=== PATIENT | male | born 1965 | race Caucasian/White ===

== ENCOUNTER 2018-10-05 08:14 | Inpatient (IN) | payer MEDICARE, MEDICAID ==
[2018-10-05 08:33] LABS: % BASOPHILS 0.1 % (0.0-2.0); % EOSINOPHILS 3.4 % (0.0-5.0); % LYMPHOCYTES 30.9 % (20.0-50.0); % MONOCYTES 5.9 % (2.0-10.0); % NEUTROPHILS 59.7 % (40.0-80.0); EOSINOPHILE ABSOLUTE 0.2 Th/cmm (0.1-0.4); HEMATOCRIT 39.5 % (41.0-60); HEMOGLOBIN 13.3 gm/dL (12-16); LYMPHOCYTE ABSOLUTE 1.7 Th/cmm (1.5-3.0); MEAN CELL VOLUME 86.2 fl (80-99); MEAN CORPUSCULAR HGB CONC 33.7 pg (28.0-36.0); MONOCYTE ABSOLUTE 0.3 Th/cmm (0.3-1.0); NEUTROPHILE ABSOLUTE 3.3 Th/cmm (1.8-8.0); PLATELET COUNT 207 Th/cmm (150-400); RED BLOOD COUNT 4.58 Mil/cmm (4.30-5.70); RED CELL DISTRIBUTION WIDTH 14.4 % (11.5-20.0); WHITE BLOOD COUNT 5.5 Th/cmm (4.8-10.8)
[2018-10-05 08:49] LABS: ACETAMINOPHEN < 10.0 ug/mL (10.0-30.0); ALB/GLOB RATIO 1.3 (1.0-1.8); ALKALINE PHOSPHATASE 48 U/L (34-104); BILIRUBIN,TOTAL 0.5 mg/dL (0.3-1.0); BUN - UREA NITROGEN 15 mg/dL (7-25); CALCIUM SERUM 8.7 mg/dL (8.6-10.3); CARBON DIOXIDE 25.9 mEq/L (21.0-31.0); CHLORIDE 102 mEq/L (98-107); CHOLESTEROL 123 mg/dL (<200); CREATININE - SERUM 0.8 mg/dL (0.7-1.3); GFR AFRICAN-AMERICAN > 60.0 ml/min (>90); GFR NON AFRICAN-AMERICAN > 60.0 ml/min; GLUCOSE 151 mg/dL (70-105); HDL -HIGH DENSITY LIPOPROTEIN 35 mg/dL (23-92); POTASSIUM SERUM 3.9 mEq/L (3.5-5.1); SGOT 16 U/L (13-39); SGPT/ALT 15 U/L (7-52); SODIUM SERUM 135 mEq/L (136-145); TOTAL PROTEIN,SERUM 7.1 gm/dL (6.0-8.3); TRIGLYCERIDES 52 mg/dL (<150)
[2018-10-05 09:15] LABS: URINE SOURCE CLEAN C
[2018-10-05 09:58] LABS: URINE BILIRUBIN NEGATIVE (NEGATIVE); URINE BLOOD NEGATIVE (NEGATIVE); URINE GLUCOSE (UA) NEGATIVE (NEGATIVE); URINE KETONE NEGATIVE (NEGATIVE); URINE LEUKOCYTE ESTERASE NEGATIVE (NEGATIVE); URINE NITRATE NEGATIVE (NEGATIVE); URINE PH 6.5 (4.6 - 8.0); URINE PROTEIN NEGATIVE (NEGATIVE); URINE UROBILINOGEN 0.2 E.U./dL (0.2 - 1.0)
--- NOTE | 2018-10-05 09:59 | ED Physician Chart ---
ED Chief Complaint/HPI - Patient Information Date Seen:: 10/05/18 Time Seen:: 08:20 Chief Complaint:: Depression History of Present Illness:: onset x 3 days of depression and sadness; no report of trauma, H/As, SIs, neck pain, C/P, SOB, Abd. Pain, A/N/V/D/C, fever, chills, or urinary s/s Allergies:: Allergies Allergy/AdvReac Type Severity Reaction Status Date / Time No Known Allergies Allergy Verified 10/05/18 08:22 Vitals:: Vital Signs - 8 hr 10/05/18 08:23 Temp 98.4 F HR 63 RR 16 BP 126/76 O2 Sat % 99 Historian:: Patient, EMS Review:: Nurse's Note Reviewed, Old Chart Reviewed, EMS run form Reviewed ED Review of Systems - Review of Systems General/Constitutional: No fever, No chills, No weight loss, No weakness, No diaphoresis, No edema, No loss of appetite Skin: No skin lesions, No rash, No bruising Head: No headache, No light-headedness Eyes: No loss of vision, No pain, No diplopia ENT: No earache, No nasal drainage, No sore throat, No tinnitus Neck: No neck pain, No swelling, No thyromegaly, No stiffness, No mass noted Cardio Vascular: No chest pain, No palpitations, No PND, No orthopnea, No edema Pulmonary: No SOB, No cough, No sputum, No wheezing GI: No nausea, No vomiting, No diarrhea, No pain, No melena, No hematochezia, No constipation, No hematemesis G/U: No dysuria, No frequency, No hematuria, No nacturia Musculoskeletal: No bone or joint pain, No back pain, No muscle pain Endocrine: No polyuria, No polydipsia Psychiatric: Prior psych history, Depression, Anxiety, No suicidal ideation, No homicidal ideation, No auditory hallucination, No visual hallucination Hematopoietic: No bruising, No lymphadenopathy Allergic/Immuno: No urticaria, No angioedema Neurological: No syncope, No focal symptoms, No weakness, No paresthesia, No headache, No seizure, No dizziness, No confusion, No vertigo ED Past Medical History - Past Medical History Obtainable: Yes Past Medical History: HTN, Seizures Family History: HTN Social History: Non Smoker, No Alcohol, No Drug Use, Single, Care Facility Surgical History: None Psychiatricy History: Depression Medication: Reviewed Family Medical History - Family Member Mother History Unknown: Yes ED Physical Exam - Physical Examination General/Constitutional: Awake, Well-developed, well-nourished, Alert, No distress, GCS 15, Non-toxic appearing, Ambulatory Head: Atraumatic Eyes: Lids, conjuctiva normal, PERRL, EOMI Skin: Nl inspection, No rash, No skin lesions, No ecchymosis, Well hydrated, No lymphadenopathy ENMT: External ears, nose nl, TM canals nl, Nasal exam nl, Lips, teeth, gums nl , Oropharynx nl, Tonsils nl Neck: Nontender, Full ROM w/o pain, No JVD, No nuchal rigidity, No bruit, No mass, No stridor Respiratory: Nl effort/Exclusion, Clear to Auscultation, No Wheeze/Rhonchi/Rales Cardio Vascular: RRR, No murmur, gallop, rubs, NL S1 S2, Carotid/Femoral/Distal pulses equal bilaterally GI: No tenderness/rebounding/guarding, No organomegaly, No hernia, Normal BS's, Nondistended, No mass/bruits, No McBurney tenderness : No CVA tenderness Extremities: No tenderness or effusion, Full ROM, normal strength in all extremities, No edema, Normal digits & nails Neuro/Psych: Alert/oriented, DTR's symmetric, Normal sensory exam, Normal motor strength, Judgement/insight normal, Mood normal, Normal gait, No focal deficits Other Neuro/Psych comments:: + Psychomotor Retardation; no SIs; Mood/Affect: Tearful/Sad Misc: Normal back, No paraspinal tenderness ED Labs/Radiology/EKG Results - Lab Results Results: Laboratory Tests 10/05/18 10/05/18 10/05/18 08:27 08:27 08:27 WBC 5.5 RBC 4.58 Hgb 13.3 Hct 39.5 L MCV 86.2 MCH 29.0 MCHC Differential 33.7 RDW 14.4 Plt Count 207 MPV 7.4 Neutrophils % 59.7 Lymphocytes % 30.9 Monocytes % 5.9 Eosinophils % 3.4 Basophils % 0.1 Sodium 135 L Potassium 3.9 Chloride 102 Carbon Dioxide 25.9 Anion Gap 11.0 BUN 15 Creatinine 0.8 Est GFR ( Amer) > 60.0 Est GFR (Non-Af Amer) > 60.0 BUN/Creatinine Ratio 18.8 Glucose 151 H Calcium 8.7 Total Bilirubin 0.5 AST 16 ALT 15 Alkaline Phosphatase 48 Troponin I 0.01 Total Protein 7.1 Albumin 4.0 L Globulin 3.1 Albumin/Globulin Ratio 1.3 Triglycerides 52 Cholesterol 123 LDL Cholesterol Direct 86 HDL Cholesterol 35 Salicylates < 25.0 L Acetaminophen < 10.0 L Ethyl Alcohol < 10 Comments:: Reviewed - EKG Interpretations EKG Time:: 08:23 Rate & Rhythm: 63; NSR Comments:: non-specific st-t changes ED Septic Shock - . Is Septic Shock (SBP<90, OR Lactate>4 mmol\L) present?: No - <6hrs of presentation: Vital Signs: Vital Signs - 8 hr 10/05/18 08:23 Temp 98.4 F HR 63 RR 16 BP 126/76 O2 Sat % 99 ED Reassessment (Disposition) - Reassessment Reassessment Condition:: Improved - Diagnosis Diagnosis:: Depression; Medical Clearance; Affective Disorder - Aftercare/Follow up Instructions Aftercare/Follow-Up Instructions:: Counseled pt regarding lab results/diagnosis & need follow up, Counseled pt & family regarding lab results/diagnosis & need follow up - Patient Disposition Discharge/Transfer:: Acute Care w/in this hosp Admitted to:: [facility] Condition at Disposition:: Stable, Improved
[2018-10-05 10:01] LABS: URINE CLARITY CLEAR (CLEAR); URINE COLOR YELLOW; URINE MICROSCOPIC INDICATED? NO
[2018-10-05 10:11] LABS: AMPHETAMINE URINE NEGATIVE (NEGATIVE); BARBITURATES URINE NEGATIVE (NEGATIVE); BENZODIAZEPINES QUAL URINE NEGATIVE (NEGATIVE); CANNABINOID THC NEGATIVE (NEGATIVE); COCAINE METABOLITE QUAL URINE NEGATIVE (NEGATIVE); METHADONE URINE NEGATIVE (NEGATIVE); METHAMPHETAMINES QUAL URINE NEGATIVE (NEGATIVE); OPIATES (MORPHINE) QUAL. URINE NEGATIVE (NEGATIVE); PHENCYCLIDINE (PCP) URINE NEGATIVE (NEGATIVE); TRICYCLICS (TCA) QUAL. URINE NEGATIVE (NEGATIVE)
[2018-10-05 10:31] VITALS: BP 123/76
--- NOTE | 2018-10-05 13:29 | History & Physical ---
ADMIT DATE: 10/05/[address] Tadeo. IDENTIFYING INFORMATION: The patient is a 52-year-old male. CHIEF COMPLAINT: "I don't know." HISTORY OF PRESENT ILLNESS: The patient was referred from a nursing facility at [place] because of depression, sadness for the last 3 days. The patient was a poor historian. He does not know where he was, could not telling me the date, could not tell me his age. The only thing he knew that he was born in 1965. He denies that he will harm himself or anyone. He reports hearing voices sometimes, but not today. He reports he sleeps well, eats well. He was extremely a poor historian. He was very tangential. He was not sure where he is, why he is here, what is a day. He reports he was born in 1965. Could not tell me the date and how old he is now. PAST PSYCHIATRIC HISTORY: According to records, history of depression. The patient apparently has been already on medications for depression. He is on Paxil and Depakote. MEDICAL HISTORY: Hypertension and seizure disorder. ALLERGIES: The patient has no known drug allergy. SOCIAL HISTORY: Nonsmoker, no alcohol, no drugs. He came from a nursing facility. He was born in 1965. He said he is . Unable to tell me how long, but he said he has a child was born in 1990, but could not tell me the age. He reports he has 2, but he is not a reliable historian. He denies substance abuse. When I asked him how far he went in school, he is asking me odd questions like he was at night school or school in [place], school here in [place]. He was unable to answer questions. Unable to tell me what he did for living. Unable to tell if there is any family psychiatric disorder. MENTAL STATUS EXAMINATION: The patient was confused. He was alert. He seems like he has some cognitive disability. He was unable to tell me the date, where he is, why he is here. He denies that he will harm himself or anyone or feeling paranoid. He reported that he heard voices in the past, but he could not tell me if he is hearing voices today. He is a poor historian. 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 He could not tell me his age. He could not tell me the date. He does not tell me why he is here. His insight about his illness is poor, does not realize what problem he has. Judgment is poor. Unable to make decisions. 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 MEDICAL DIAGNOSES: Hypertension and seizure disorder, defer to the medical doctor. His assets, he is accepting treatment. Negative poor coping skills. INITIAL TREATMENT PLAN: The patient will be started back on medication. We will do group therapy, milieu therapy, and individual therapy. ESTIMATED LENGTH OF STAY: 3-7 days. DISCHARGE CRITERIA: Feeling better, decreasing depression. After discharge, outpatient treatment. [facility]# [id number]
[2018-10-06 07:06] LABS: A1C 5.5 % (4.8-5.6)
[2018-10-06] MEDS: Lactulose 10 Gm/15 mL 30mL UDC PO SCH (08:57)
--- NOTE | 2018-10-06 17:21 | Progress Notes ---
DATE: 10/06/[address] Tadeo. Case was discussed with staff of the patient, reviewed records. The patient continues to be a poor historian. Continues to be confused, preoccupied due to lunch, kept asking when his lunch. Continues to have poor insight. Unable to tell the date, where he is, continues to hear voices at times. He sleeps well. He eats well. Unable to make safe plan for self-care or participate in meaningful conversation other than asking when his lunch, when his lunch is coming. No side effects with the medication, no sedation, no nausea, some Paxil and Depakote. I will continue to work with the patient in group therapy, milieu therapy, and adjust the medications as needed. JOB# [id number]
--- NOTE | 2018-10-06 20:13 | Consultation ---
DATE OF CONSULTATION: INTERNAL MEDICINE CONSULTATION REFERRING PHYSICIAN: Aniceto Tadeo M.D. REASON FOR CONSULT: Medical management. HISTORY OF PRESENT ILLNESS: The patient is a 53-year-old gentleman with a history of depression, essential hypertension, seizure disorder who was transferred to this facility given acute depression. He is a poor historian and does not know why he is here. He denies any medical history and currently denies any symptomatology such as fever, chills, cough, chest pain or shortness of breath. The patient has been admitted to the [facility] for further management and care. PAST MEDICAL HISTORY: Per records, seizures and essential hypertension. PAST SURGICAL HISTORY: None per the patient's account. FAMILY HISTORY: Noncontributory to this admission. SOCIAL HISTORY: He denies any tobacco, ETOH or illicit drug usage. ALLERGIES: NKDA. OUTPATIENT MEDICATIONS: Depakote DR 500 mg q.a.m., Colace 100 mg every day, lactulose 20 grams p.o. every day, Paxil 20 mg every day, vitamin D3 5000 international units every day. REVIEW OF SYSTEMS: CONSTITUTIONAL: The patient denies any fever, chills, any recent weight loss. CARDIOVASCULAR: Denies any chest pain, palpitations. PULMONARY: Denies any cough or phlegm production. GASTROINTESTINAL: No bowel habit changes. GENITOURINARY: No bladder habit changes. NEUROLOGIC: The patient denies any seizure activity, any syncope. Currently denies any headaches or blurry vision. PHYSICAL EXAMINATION: VITAL SIGNS: Temperature 98.0, pulse 66, respirations 19, BP 110/68, satting 96-97% on room air. GENERAL: Well nourished, well developed, in no apparent distress. The patient appears to be nontoxic. HEAD AND NECK: Normocephalic, atraumatic. Pupils are reactive to light. Extraocular movements are intact. Oropharynx is moist and clear. NECK: There is no JVD or LAD. CARDIAC: Regular rate and rhythm without any murmurs. LUNGS: Clear to auscultation bilaterally. ABDOMEN: Soft, supple, nontender, nondistended, normoactive bowel sounds. EXTREMITIES: Lower extremities: No pedal edema. NEUROLOGIC: Appears to be grossly intact, nonfocal. LABORATORY DATA: CBC was essentially within normal limits. Glucose 151, otherwise Chem-20 was within normal limits. Troponins negative x 1 set. TSH 3.67. UA was negative. Urine toxicology is negative except for valproic acid 41.3. IMPRESSION: 1. Acute depression. 2. History of depression. 3. History of seizure disorder. 4. History of essential hypertension. PLAN: The patient has been admitted to the [facility] for further management and care. The patient will remain on Depakote as scheduled and I will add clonidine p.r.n. for SBP greater than 160. [facility]# [id number]
[2018-10-07] MEDS: Lactulose 10 Gm/15 mL 30mL UDC PO SCH (09:41)
--- NOTE | 2018-10-07 14:53 | Progress Notes ---
DATE: 10/07/2018 Case was discussed with staff of the patient, reviewed records. The patient continues to be confused, internally preoccupied. Continues to be unable to carry on a conversation or make safe plan for self-care, responding to internal stimuli. He is unpredictable, impulsive, needing redirection, has been compliant with the medication with no side effects, no sedation, no nausea. We will continue outpatient group therapy, milieu therapy, adjust medication as needed. [facility]# [id number]
[2018-10-08] MEDS: Lactulose 10 Gm/15 mL 30mL UDC PO SCH (08:37)
--- NOTE | 2018-10-08 10:37 | Internal Medicine Prog Note ---
Internal Medicine Subjective - Subjective Service Date: 10/08/18 (COMFORTABLE, NO ACUTE EVENTS NOTED/REPORTED) Patient seen and examined:: without staff Patient is:: awake Per staff patient has:: no adverse event Internal Medicine Objective - Results Result Diagrams: 10/05/18 08:27 10/05/18 08:27 Recent Labs: Laboratory Last Values WBC 5.5 Th/cmm (4.8-10.8) 10/05/18 08:27 RBC 4.58 Mil/cmm (4.30-5.70) 10/05/18 08:27 Hgb 13.3 gm/dL (12-16) 10/05/18 08:27 Hct 39.5 % (41.0-60) L 10/05/18 08:27 MCV 86.2 fl (80-99) 10/05/18 08:27 MCH 29.0 pg (26.0-30.0) 10/05/18 08:27 MCHC Differential 33.7 pg (28.0-36.0) 10/05/18 08:27 RDW 14.4 % (11.5-20.0) 10/05/18 08:27 Plt Count 207 Th/cmm (150-400) 10/05/18 08:27 MPV 7.4 fl 10/05/18 08:27 Neutrophils % 59.7 % (40.0-80.0) 10/05/18 08:27 Lymphocytes % 30.9 % (20.0-50.0) 10/05/18 08:27 Monocytes % 5.9 % (2.0-10.0) 10/05/18 08:27 Eosinophils % 3.4 % (0.0-5.0) 10/05/18 08:27 Basophils % 0.1 % (0.0-2.0) 10/05/18 08:27 Sodium 135 mEq/L (136-145) L 10/05/18 08:27 Potassium 3.9 mEq/L (3.5-5.1) 10/05/18 08:27 Chloride 102 mEq/L (98-107) 10/05/18 08:27 Carbon Dioxide 25.9 mEq/L (21.0-31.0) 10/05/18 08:27 Anion Gap 11.0 (7.0-16.0) 10/05/18 08:27 BUN 15 mg/dL (7-25) 10/05/18 08:27 Creatinine 0.8 mg/dL (0.7-1.3) 10/05/18 08:27 Est GFR ( Amer) > 60.0 ml/min (>90) 10/05/18 08:27 Est GFR (Non-Af Amer) > 60.0 ml/min 10/05/18 08:27 BUN/Creatinine Ratio 18.8 10/05/18 08:27 Glucose 151 mg/dL (70-105) H 10/05/18 08:27 Calcium 8.7 mg/dL (8.6-10.3) 10/05/18 08:27 Total Bilirubin 0.5 mg/dL (0.3-1.0) 10/05/18 08:27 AST 16 U/L (13-39) 10/05/18 08:27 ALT 15 U/L (7-52) 10/05/18 08:27 Alkaline Phosphatase 48 U/L (34-104) 10/05/18 08:27 Troponin I 0.01 ng/mL (0.01-0.05) 10/05/18 08:27 Total Protein 7.1 gm/dL (6.0-8.3) 10/05/18 08:27 Albumin 4.0 gm/dL (4.2-5.5) L 10/05/18 08:27 Globulin 3.1 gm/dL 10/05/18 08:27 Albumin/Globulin Ratio 1.3 (1.0-1.8) 10/05/18 08:27 Triglycerides 52 mg/dL (<150) 10/05/18 08:27 Cholesterol 123 mg/dL (<200) 10/05/18 08:27 LDL Cholesterol Direct 86 mg/dL (75-193) 10/05/18 08:27 HDL Cholesterol 35 mg/dL (23-92) 10/05/18 08:27 TSH 3.67 uIU/ml (0.34-5.60) 10/05/18 08:27 Urine Source CLEAN C 10/05/18 09:00 Urine Color YELLOW 10/05/18 09:00 Urine Clarity CLEAR (CLEAR) 10/05/18 09:00 Urine pH 6.5 (4.6 - 8.0) 10/05/18 09:00 Ur Specific [place] 1.010 (1.005-1.030) 10/05/18 09:00 Urine Protein NEGATIVE mg/dL (NEGATIVE) 10/05/18 09:00 Urine Glucose (UA) NEGATIVE mg/dL (NEGATIVE) 10/05/18 09:00 Urine Ketones NEGATIVE mg/dL (NEGATIVE) 10/05/18 09:00 Urine Blood NEGATIVE (NEGATIVE) 10/05/18 09:00 Urine Nitrate NEGATIVE (NEGATIVE) 10/05/18 09:00 Urine Bilirubin NEGATIVE (NEGATIVE) 10/05/18 09:00 Urine Urobilinogen 0.2 E.U./dL (0.2 - 1.0) 10/05/18 09:00 Ur Leukocyte Esterase NEGATIVE (NEGATIVE) 10/05/18 09:00 Salicylates < 25.0 mg/L (30.0-100.0) L 10/05/18 08:27 Urine Opiates Screen NEGATIVE (NEGATIVE) 10/05/18 09:00 Urine Methadone Screen NEGATIVE (NEGATIVE) 10/05/18 09:00 Acetaminophen < 10.0 ug/mL (10.0-30.0) L 10/05/18 08:27 Ur Barbiturates Screen NEGATIVE (NEGATIVE) 10/05/18 09:00 Valproic Acid 41.3 ug/mL (50.0-100.0) L 10/05/18 08:27 Ur Tricyclics Screen NEGATIVE (NEGATIVE) 10/05/18 09:00 Ur Phencyclidine Scrn NEGATIVE (NEGATIVE) 10/05/18 09:00 Amphetamines Screen NEGATIVE (NEGATIVE) 10/05/18 09:00 U Methamphetamines Scrn NEGATIVE (NEGATIVE) 10/05/18 09:00 U Benzodiazepines Scrn NEGATIVE (NEGATIVE) 10/05/18 09:00 U Cocaine Metab Screen NEGATIVE (NEGATIVE) 10/05/18 09:00 U Cannabinoids Screen NEGATIVE (NEGATIVE) 10/05/18 09:00 Ethyl Alcohol < 10 mg/dL (0-10) 10/05/18 08:27 - Physical Exam Vitals and I&O: Vital Signs Temp 98.0 F 10/08/18 06:15 Pulse 62 10/08/18 06:15 Resp 20 10/08/18 07:38 BP 116/67 10/08/18 06:15 Pulse Ox 95 10/08/18 06:15 Intake & Output 10/07/18 10/08/18 10/08/18 18:59 06:59 18:59 Intake Total 240 Balance 240 Intake: Oral 240 Other: # Voids 2 Stool Characteristics Soft Soft Active Medications: Current Medications Cholecalciferol (Vitamin D3) 5,000 iu PO DAILY MANDA Stop: 12/05/18 08:59 Last Admin: 10/08/18 08:37 Dose: 5,000 iu Divalproex Sodium (Depakote Dr) 500 mg PO QAM [facility]; Protocol Stop: 12/05/18 08:59 Last Admin: 10/08/18 08:37 Dose: 500 mg Docusate Sodium (Colace) 100 mg PO DAILY MANDA Stop: 12/05/18 08:59 Last Admin: 10/08/18 08:37 Dose: 100 mg Lactulose (Cephulac) 20 gm PO DAILY MANDA Stop: 12/05/18 08:59 Last Admin: 10/08/18 08:37 Dose: 20 gm Lorazepam (Ativan) 0.5 mg PO Q4HR PRN; Protocol PRN Reason: Anxiety Stop: 12/04/18 15:33 Last Admin: 10/07/18 14:04 Dose: 0.5 mg Paroxetine HCl (Paxil) 20 mg PO DAILY [facility]; Protocol Stop: 12/05/18 08:59 Last Admin: 10/08/18 08:38 Dose: 20 mg Risperidone (Risperdal) 0.5 mg PO BID MANDA; Protocol Stop: 12/06/18 16:59 Last Admin: 10/08/18 08:38 Dose: 0.5 mg Zolpidem Tartrate (Ambien) 5 mg PO HS PRN PRN Reason: Insomnia Stop: 12/04/18 15:37 Last Admin: 10/07/18 21:22 Dose: 5 mg General: alert HEENT: NC/AT, PERRLA, EOMI Neck: Supple, No JVD, No thyromegaly, No LAD Lungs: CTAB Cardiovascular: RRR, Normal S1, Normal S2, without murmur Abdomen: soft, non-tender, non-distended, positive bowel sound, no tender Neurological: no change Internal Medicine Assmt/Plan - Assessment Assessment: DEPRESSION HISTORY OF ESSENTIAL HTN HISTORY OF SEIZURE D/O - Plan Plan: CONT WITH CURRENT OSYCH SUPPORTIVE CARE AND MGT CONT WITH DEPAKOATE SCHEDULED AND CLONIDINE PRN
--- NOTE | 2018-10-08 22:31 | Progress Notes ---
DATE: 10/08/2018 The patient in the hospital internally preoccupied, confused, does not know why he is in the hospital, does not know where he came from, does not know where he is going to go. Not answering most questions, nonchalant, confused, unclear why he is here. Apparently is trying to escape the hospital, needing a higher level of prompting, redirection. The patient remains impulsive, unpredictable, ongoing safety concerns. We will continue to monitor. Medications were reviewed. The patient will likely need a safe discharge plan and he is not giving me really any information about where he lives or where he will. [facility]# [id number]
[2018-10-09] MEDS: Lactulose 10 Gm/15 mL 30mL UDC PO SCH (08:57)
--- NOTE | 2018-10-09 09:20 | Internal Medicine Prog Note ---
Internal Medicine Subjective - Subjective Service Date: 10/09/18 (comfortable) Patient is:: awake Per staff patient has:: no adverse event Internal Medicine Objective - Results Result Diagrams: 10/05/18 08:27 10/05/18 08:27 Recent Labs: Laboratory Last Values WBC 5.5 Th/cmm (4.8-10.8) 10/05/18 08:27 RBC 4.58 Mil/cmm (4.30-5.70) 10/05/18 08:27 Hgb 13.3 gm/dL (12-16) 10/05/18 08:27 Hct 39.5 % (41.0-60) L 10/05/18 08:27 MCV 86.2 fl (80-99) 10/05/18 08:27 MCH 29.0 pg (26.0-30.0) 10/05/18 08:27 MCHC Differential 33.7 pg (28.0-36.0) 10/05/18 08:27 RDW 14.4 % (11.5-20.0) 10/05/18 08:27 Plt Count 207 Th/cmm (150-400) 10/05/18 08:27 MPV 7.4 fl 10/05/18 08:27 Neutrophils % 59.7 % (40.0-80.0) 10/05/18 08:27 Lymphocytes % 30.9 % (20.0-50.0) 10/05/18 08:27 Monocytes % 5.9 % (2.0-10.0) 10/05/18 08:27 Eosinophils % 3.4 % (0.0-5.0) 10/05/18 08:27 Basophils % 0.1 % (0.0-2.0) 10/05/18 08:27 Sodium 135 mEq/L (136-145) L 10/05/18 08:27 Potassium 3.9 mEq/L (3.5-5.1) 10/05/18 08:27 Chloride 102 mEq/L (98-107) 10/05/18 08:27 Carbon Dioxide 25.9 mEq/L (21.0-31.0) 10/05/18 08:27 Anion Gap 11.0 (7.0-16.0) 10/05/18 08:27 BUN 15 mg/dL (7-25) 10/05/18 08:27 Creatinine 0.8 mg/dL (0.7-1.3) 10/05/18 08:27 Est GFR ( Amer) > 60.0 ml/min (>90) 10/05/18 08:27 Est GFR (Non-Af Amer) > 60.0 ml/min 10/05/18 08:27 BUN/Creatinine Ratio 18.8 10/05/18 08:27 Glucose 151 mg/dL (70-105) H 10/05/18 08:27 Calcium 8.7 mg/dL (8.6-10.3) 10/05/18 08:27 Total Bilirubin 0.5 mg/dL (0.3-1.0) 10/05/18 08:27 AST 16 U/L (13-39) 10/05/18 08:27 ALT 15 U/L (7-52) 10/05/18 08:27 Alkaline Phosphatase 48 U/L (34-104) 10/05/18 08:27 Troponin I 0.01 ng/mL (0.01-0.05) 10/05/18 08:27 Total Protein 7.1 gm/dL (6.0-8.3) 10/05/18 08:27 Albumin 4.0 gm/dL (4.2-5.5) L 10/05/18 08:27 Globulin 3.1 gm/dL 10/05/18 08:27 Albumin/Globulin Ratio 1.3 (1.0-1.8) 10/05/18 08:27 Triglycerides 52 mg/dL (<150) 10/05/18 08:27 Cholesterol 123 mg/dL (<200) 10/05/18 08:27 LDL Cholesterol Direct 86 mg/dL (75-193) 10/05/18 08:27 HDL Cholesterol 35 mg/dL (23-92) 10/05/18 08:27 TSH 3.67 uIU/ml (0.34-5.60) 10/05/18 08:27 Urine Source CLEAN C 10/05/18 09:00 Urine Color YELLOW 10/05/18 09:00 Urine Clarity CLEAR (CLEAR) 10/05/18 09:00 Urine pH 6.5 (4.6 - 8.0) 10/05/18 09:00 Ur Specific [place] 1.010 (1.005-1.030) 10/05/18 09:00 Urine Protein NEGATIVE mg/dL (NEGATIVE) 10/05/18 09:00 Urine Glucose (UA) NEGATIVE mg/dL (NEGATIVE) 10/05/18 09:00 Urine Ketones NEGATIVE mg/dL (NEGATIVE) 10/05/18 09:00 Urine Blood NEGATIVE (NEGATIVE) 10/05/18 09:00 Urine Nitrate NEGATIVE (NEGATIVE) 10/05/18 09:00 Urine Bilirubin NEGATIVE (NEGATIVE) 10/05/18 09:00 Urine Urobilinogen 0.2 E.U./dL (0.2 - 1.0) 10/05/18 09:00 Ur Leukocyte Esterase NEGATIVE (NEGATIVE) 10/05/18 09:00 Salicylates < 25.0 mg/L (30.0-100.0) L 10/05/18 08:27 Urine Opiates Screen NEGATIVE (NEGATIVE) 10/05/18 09:00 Urine Methadone Screen NEGATIVE (NEGATIVE) 10/05/18 09:00 Acetaminophen < 10.0 ug/mL (10.0-30.0) L 10/05/18 08:27 Ur Barbiturates Screen NEGATIVE (NEGATIVE) 10/05/18 09:00 Valproic Acid 41.3 ug/mL (50.0-100.0) L 10/05/18 08:27 Ur Tricyclics Screen NEGATIVE (NEGATIVE) 10/05/18 09:00 Ur Phencyclidine Scrn NEGATIVE (NEGATIVE) 10/05/18 09:00 Amphetamines Screen NEGATIVE (NEGATIVE) 10/05/18 09:00 U Methamphetamines Scrn NEGATIVE (NEGATIVE) 10/05/18 09:00 U Benzodiazepines Scrn NEGATIVE (NEGATIVE) 10/05/18 09:00 U Cocaine Metab Screen NEGATIVE (NEGATIVE) 10/05/18 09:00 U Cannabinoids Screen NEGATIVE (NEGATIVE) 10/05/18 09:00 Ethyl Alcohol < 10 mg/dL (0-10) 10/05/18 08:27 - Physical Exam Vitals and I&O: Vital Signs Temp 98.5 F 10/09/18 05:24 Pulse 68 10/09/18 05:24 Resp 20 10/09/18 08:00 BP 113/63 10/09/18 05:24 Pulse Ox 96 10/09/18 05:24 Intake & Output 10/08/18 10/09/18 10/09/18 18:59 06:59 18:59 Intake Total 240 Balance 240 Intake: Oral 240 Other: # Voids 2 Stool Characteristics Soft Soft Active Medications: Current Medications Cholecalciferol (Vitamin D3) 5,000 iu PO DAILY [facility] Stop: 12/05/18 08:59 Last Admin: 10/09/18 08:57 Dose: 5,000 iu Divalproex Sodium (Depakote Dr) 500 mg PO QAM [facility]; Protocol Stop: 12/05/18 08:59 Last Admin: 10/09/18 08:57 Dose: 500 mg Docusate Sodium (Colace) 100 mg PO DAILY [facility] Stop: 12/05/18 08:59 Last Admin: 10/09/18 08:57 Dose: 100 mg Lactulose (Cephulac) 20 gm PO DAILY [facility] Stop: 12/05/18 08:59 Last Admin: 10/09/18 08:57 Dose: 20 gm Lorazepam (Ativan) 0.5 mg PO Q4HR PRN; Protocol PRN Reason: Anxiety Stop: 12/04/18 15:33 Last Admin: 10/07/18 14:04 Dose: 0.5 mg Paroxetine HCl (Paxil) 20 mg PO DAILY [facility]; Protocol Stop: 12/05/18 08:59 Last Admin: 10/09/18 08:57 Dose: 20 mg Risperidone (Risperdal) 0.5 mg PO BID [facility]; Protocol Stop: 12/06/18 16:59 Last Admin: 10/09/18 08:57 Dose: 0.5 mg Zolpidem Tartrate (Ambien) 5 mg PO HS PRN PRN Reason: Insomnia Stop: 12/04/18 15:37 Last Admin: 10/08/18 21:28 Dose: 5 mg General: alert HEENT: NC/AT, PERRLA, EOMI Neck: Supple, No JVD, No thyromegaly, No LAD Lungs: CTAB Cardiovascular: RRR, Normal S1, Normal S2, without murmur Abdomen: soft, non-tender, non-distended, positive bowel sound, no tender Neurological: no change Internal Medicine Assmt/Plan - Assessment Assessment: ACUTE DEPRESSION HISTORY OF ESSENTIAL HTN-stable. HISTORY OF SEIZURE D/O-stable. - Plan Plan: CONT WITH CURRENT PSYCH SUPPORTIVE CARE AND MGT CONT WITH DEPAKOATE SCHEDULED AND CLONIDINE PRN
--- NOTE | 2018-10-10 01:22 | Progress Notes ---
DATE: 10/09/2018 SUBJECTIVE: The patient in the hospital, confused, disoriented. He has been pretty impulsive, unpredictable, concerns for sexually inappropriate behaviors, but none noted right now. Generally calm, has no idea why he is in the hospital, concerns that he may try to leave the hospital AWOL. Not answering most questions appropriately, just basically knows his name. He knows he is in the hospital. Concerns that he may inappropriately touch women as he has done so in the past. ASSESSMENT: The patient remains impulsive, ongoing concerns about impulsivity. PLAN: We will continue to monitor and titrate dosing of Paxil. JOB# [id number]
[2018-10-10] MEDS: Lactulose 10 Gm/15 mL 30mL UDC PO SCH (08:04)
--- NOTE | 2018-10-10 09:28 | Internal Medicine Prog Note ---
Internal Medicine Subjective - Subjective Service Date: 10/10/18 (COMFORTABLE) Patient is:: awake Per staff patient has:: no adverse event Internal Medicine Objective - Results Result Diagrams: 10/05/18 08:27 10/05/18 08:27 Recent Labs: Laboratory Last Values WBC 5.5 Th/cmm (4.8-10.8) 10/05/18 08:27 RBC 4.58 Mil/cmm (4.30-5.70) 10/05/18 08:27 Hgb 13.3 gm/dL (12-16) 10/05/18 08:27 Hct 39.5 % (41.0-60) L 10/05/18 08:27 MCV 86.2 fl (80-99) 10/05/18 08:27 MCH 29.0 pg (26.0-30.0) 10/05/18 08:27 MCHC Differential 33.7 pg (28.0-36.0) 10/05/18 08:27 RDW 14.4 % (11.5-20.0) 10/05/18 08:27 Plt Count 207 Th/cmm (150-400) 10/05/18 08:27 MPV 7.4 fl 10/05/18 08:27 Neutrophils % 59.7 % (40.0-80.0) 10/05/18 08:27 Lymphocytes % 30.9 % (20.0-50.0) 10/05/18 08:27 Monocytes % 5.9 % (2.0-10.0) 10/05/18 08:27 Eosinophils % 3.4 % (0.0-5.0) 10/05/18 08:27 Basophils % 0.1 % (0.0-2.0) 10/05/18 08:27 Sodium 135 mEq/L (136-145) L 10/05/18 08:27 Potassium 3.9 mEq/L (3.5-5.1) 10/05/18 08:27 Chloride 102 mEq/L (98-107) 10/05/18 08:27 Carbon Dioxide 25.9 mEq/L (21.0-31.0) 10/05/18 08:27 Anion Gap 11.0 (7.0-16.0) 10/05/18 08:27 BUN 15 mg/dL (7-25) 10/05/18 08:27 Creatinine 0.8 mg/dL (0.7-1.3) 10/05/18 08:27 Est GFR ( Amer) > 60.0 ml/min (>90) 10/05/18 08:27 Est GFR (Non-Af Amer) > 60.0 ml/min 10/05/18 08:27 BUN/Creatinine Ratio 18.8 10/05/18 08:27 Glucose 151 mg/dL (70-105) H 10/05/18 08:27 Calcium 8.7 mg/dL (8.6-10.3) 10/05/18 08:27 Total Bilirubin 0.5 mg/dL (0.3-1.0) 10/05/18 08:27 AST 16 U/L (13-39) 10/05/18 08:27 ALT 15 U/L (7-52) 10/05/18 08:27 Alkaline Phosphatase 48 U/L (34-104) 10/05/18 08:27 Troponin I 0.01 ng/mL (0.01-0.05) 10/05/18 08:27 Total Protein 7.1 gm/dL (6.0-8.3) 10/05/18 08:27 Albumin 4.0 gm/dL (4.2-5.5) L 10/05/18 08:27 Globulin 3.1 gm/dL 10/05/18 08:27 Albumin/Globulin Ratio 1.3 (1.0-1.8) 10/05/18 08:27 Triglycerides 52 mg/dL (<150) 10/05/18 08:27 Cholesterol 123 mg/dL (<200) 10/05/18 08:27 LDL Cholesterol Direct 86 mg/dL (75-193) 10/05/18 08:27 HDL Cholesterol 35 mg/dL (23-92) 10/05/18 08:27 TSH 3.67 uIU/ml (0.34-5.60) 10/05/18 08:27 Urine Source CLEAN C 10/05/18 09:00 Urine Color YELLOW 10/05/18 09:00 Urine Clarity CLEAR (CLEAR) 10/05/18 09:00 Urine pH 6.5 (4.6 - 8.0) 10/05/18 09:00 Ur Specific [place] 1.010 (1.005-1.030) 10/05/18 09:00 Urine Protein NEGATIVE mg/dL (NEGATIVE) 10/05/18 09:00 Urine Glucose (UA) NEGATIVE mg/dL (NEGATIVE) 10/05/18 09:00 Urine Ketones NEGATIVE mg/dL (NEGATIVE) 10/05/18 09:00 Urine Blood NEGATIVE (NEGATIVE) 10/05/18 09:00 Urine Nitrate NEGATIVE (NEGATIVE) 10/05/18 09:00 Urine Bilirubin NEGATIVE (NEGATIVE) 10/05/18 09:00 Urine Urobilinogen 0.2 E.U./dL (0.2 - 1.0) 10/05/18 09:00 Ur Leukocyte Esterase NEGATIVE (NEGATIVE) 10/05/18 09:00 Salicylates < 25.0 mg/L (30.0-100.0) L 10/05/18 08:27 Urine Opiates Screen NEGATIVE (NEGATIVE) 10/05/18 09:00 Urine Methadone Screen NEGATIVE (NEGATIVE) 10/05/18 09:00 Acetaminophen < 10.0 ug/mL (10.0-30.0) L 10/05/18 08:27 Ur Barbiturates Screen NEGATIVE (NEGATIVE) 10/05/18 09:00 Valproic Acid 41.3 ug/mL (50.0-100.0) L 10/05/18 08:27 Ur Tricyclics Screen NEGATIVE (NEGATIVE) 10/05/18 09:00 Ur Phencyclidine Scrn NEGATIVE (NEGATIVE) 10/05/18 09:00 Amphetamines Screen NEGATIVE (NEGATIVE) 10/05/18 09:00 U Methamphetamines Scrn NEGATIVE (NEGATIVE) 10/05/18 09:00 U Benzodiazepines Scrn NEGATIVE (NEGATIVE) 10/05/18 09:00 U Cocaine Metab Screen NEGATIVE (NEGATIVE) 10/05/18 09:00 U Cannabinoids Screen NEGATIVE (NEGATIVE) 10/05/18 09:00 Ethyl Alcohol < 10 mg/dL (0-10) 10/05/18 08:27 - Physical Exam Vitals and I&O: Vital Signs Temp 97.8 F 10/09/18 21:43 Pulse 64 10/09/18 21:43 Resp 19 10/09/18 21:43 BP 117/55 10/09/18 21:43 Pulse Ox 97 10/09/18 21:43 Intake & Output 10/09/18 10/10/18 10/10/18 18:59 06:59 18:59 Intake Total 1320 2490 Balance 1320 2490 Intake: Oral 1080 2490 Other 240 Other: # Voids 3 2 # Bowel Movements 1 Stool Characteristics Soft Soft Active Medications: Current Medications Cholecalciferol (Vitamin D3) 5,000 iu PO DAILY MANDA Stop: 12/05/18 08:59 Last Admin: 10/10/18 08:04 Dose: 5,000 iu Divalproex Sodium (Depakote Dr) 500 mg PO QAM MANDA; Protocol Stop: 12/05/18 08:59 Last Admin: 10/10/18 08:04 Dose: 500 mg Docusate Sodium (Colace) 100 mg PO DAILY MANDA Stop: 12/05/18 08:59 Last Admin: 10/10/18 08:04 Dose: 100 mg Lactulose (Cephulac) 20 gm PO DAILY MANDA Stop: 12/05/18 08:59 Last Admin: 10/10/18 08:04 Dose: 20 gm Lorazepam (Ativan) 0.5 mg PO Q4HR PRN; Protocol PRN Reason: Anxiety Stop: 12/04/18 15:33 Last Admin: 10/09/18 21:28 Dose: 0.5 mg Paroxetine HCl (Paxil) 20 mg PO DAILY MANDA; Protocol Stop: 12/05/18 08:59 Last Admin: 10/10/18 08:04 Dose: 20 mg Paroxetine HCl (Paxil) 10 mg PO HS MANDA; Protocol Stop: 12/08/18 20:59 Risperidone (Risperdal) 0.5 mg PO BID MANDA; Protocol Stop: 12/06/18 16:59 Last Admin: 10/10/18 08:04 Dose: 0.5 mg Zolpidem Tartrate (Ambien) 5 mg PO HS PRN PRN Reason: Insomnia Stop: 12/04/18 15:37 Last Admin: 10/09/18 23:09 Dose: 5 mg General: alert HEENT: NC/AT, PERRLA, EOMI Neck: Supple, No JVD, No thyromegaly, No LAD Lungs: CTAB Cardiovascular: RRR, Normal S1, Normal S2, without murmur Abdomen: soft, non-tender, non-distended, positive bowel sound, no tender Neurological: no change Internal Medicine Assmt/Plan - Assessment Assessment: ACUTE DEPRESSION HISTORY OF ESSENTIAL HTN-stable. HISTORY OF SEIZURE D/O-stable. - Plan Plan: CONT WITH CURRENT PSYCH SUPPORTIVE CARE AND MGT CONT WITH DEPAKOATE SCHEDULED AND CLONIDINE PRN
--- NOTE | 2018-10-10 21:34 | Progress Notes ---
DATE: 10/10/2018 SUBJECTIVE: The patient in the hospital, slept pretty well, mostly withdrawn, very confused, just knows his name. He really has no idea where he is. Repetitive, ruminative, asks the same questions over and over again. Otherwise, he is pretty calm, but he does remain pretty impulsive, unpredictable, ongoing concerns that he may act out upon his impulses. Currently on dosing of Paxil and Risperdal. PLAN: We will continue to monitor ongoing concerns for poor impulse control. Recent dose increase of Paxil. JOB# [id number]
[2018-10-11] MEDS: Lactulose 10 Gm/15 mL 30mL UDC PO SCH (09:07)
--- NOTE | 2018-10-11 09:51 | Internal Medicine Prog Note ---
Internal Medicine Subjective - Subjective Service Date: 10/11/18 (comfortable) Patient seen and examined:: without staff Patient is:: awake Per staff patient has:: no adverse event Internal Medicine Objective - Results Result Diagrams: 10/05/18 08:27 10/05/18 08:27 Recent Labs: Laboratory Last Values WBC 5.5 Th/cmm (4.8-10.8) 10/05/18 08:27 RBC 4.58 Mil/cmm (4.30-5.70) 10/05/18 08:27 Hgb 13.3 gm/dL (12-16) 10/05/18 08:27 Hct 39.5 % (41.0-60) L 10/05/18 08:27 MCV 86.2 fl (80-99) 10/05/18 08:27 MCH 29.0 pg (26.0-30.0) 10/05/18 08:27 MCHC Differential 33.7 pg (28.0-36.0) 10/05/18 08:27 RDW 14.4 % (11.5-20.0) 10/05/18 08:27 Plt Count 207 Th/cmm (150-400) 10/05/18 08:27 MPV 7.4 fl 10/05/18 08:27 Neutrophils % 59.7 % (40.0-80.0) 10/05/18 08:27 Lymphocytes % 30.9 % (20.0-50.0) 10/05/18 08:27 Monocytes % 5.9 % (2.0-10.0) 10/05/18 08:27 Eosinophils % 3.4 % (0.0-5.0) 10/05/18 08:27 Basophils % 0.1 % (0.0-2.0) 10/05/18 08:27 Sodium 135 mEq/L (136-145) L 10/05/18 08:27 Potassium 3.9 mEq/L (3.5-5.1) 10/05/18 08:27 Chloride 102 mEq/L (98-107) 10/05/18 08:27 Carbon Dioxide 25.9 mEq/L (21.0-31.0) 10/05/18 08:27 Anion Gap 11.0 (7.0-16.0) 10/05/18 08:27 BUN 15 mg/dL (7-25) 10/05/18 08:27 Creatinine 0.8 mg/dL (0.7-1.3) 10/05/18 08:27 Est GFR ( Amer) > 60.0 ml/min (>90) 10/05/18 08:27 Est GFR (Non-Af Amer) > 60.0 ml/min 10/05/18 08:27 BUN/Creatinine Ratio 18.8 10/05/18 08:27 Glucose 151 mg/dL (70-105) H 10/05/18 08:27 Calcium 8.7 mg/dL (8.6-10.3) 10/05/18 08:27 Total Bilirubin 0.5 mg/dL (0.3-1.0) 10/05/18 08:27 AST 16 U/L (13-39) 10/05/18 08:27 ALT 15 U/L (7-52) 10/05/18 08:27 Alkaline Phosphatase 48 U/L (34-104) 10/05/18 08:27 Troponin I 0.01 ng/mL (0.01-0.05) 10/05/18 08:27 Total Protein 7.1 gm/dL (6.0-8.3) 10/05/18 08:27 Albumin 4.0 gm/dL (4.2-5.5) L 10/05/18 08:27 Globulin 3.1 gm/dL 10/05/18 08:27 Albumin/Globulin Ratio 1.3 (1.0-1.8) 10/05/18 08:27 Triglycerides 52 mg/dL (<150) 10/05/18 08:27 Cholesterol 123 mg/dL (<200) 10/05/18 08:27 LDL Cholesterol Direct 86 mg/dL (75-193) 10/05/18 08:27 HDL Cholesterol 35 mg/dL (23-92) 10/05/18 08:27 TSH 3.67 uIU/ml (0.34-5.60) 10/05/18 08:27 Urine Source CLEAN C 10/05/18 09:00 Urine Color YELLOW 10/05/18 09:00 Urine Clarity CLEAR (CLEAR) 10/05/18 09:00 Urine pH 6.5 (4.6 - 8.0) 10/05/18 09:00 Ur Specific [place] 1.010 (1.005-1.030) 10/05/18 09:00 Urine Protein NEGATIVE mg/dL (NEGATIVE) 10/05/18 09:00 Urine Glucose (UA) NEGATIVE mg/dL (NEGATIVE) 10/05/18 09:00 Urine Ketones NEGATIVE mg/dL (NEGATIVE) 10/05/18 09:00 Urine Blood NEGATIVE (NEGATIVE) 10/05/18 09:00 Urine Nitrate NEGATIVE (NEGATIVE) 10/05/18 09:00 Urine Bilirubin NEGATIVE (NEGATIVE) 10/05/18 09:00 Urine Urobilinogen 0.2 E.U./dL (0.2 - 1.0) 10/05/18 09:00 Ur Leukocyte Esterase NEGATIVE (NEGATIVE) 10/05/18 09:00 Salicylates < 25.0 mg/L (30.0-100.0) L 10/05/18 08:27 Urine Opiates Screen NEGATIVE (NEGATIVE) 10/05/18 09:00 Urine Methadone Screen NEGATIVE (NEGATIVE) 10/05/18 09:00 Acetaminophen < 10.0 ug/mL (10.0-30.0) L 10/05/18 08:27 Ur Barbiturates Screen NEGATIVE (NEGATIVE) 10/05/18 09:00 Valproic Acid 41.3 ug/mL (50.0-100.0) L 10/05/18 08:27 Ur Tricyclics Screen NEGATIVE (NEGATIVE) 10/05/18 09:00 Ur Phencyclidine Scrn NEGATIVE (NEGATIVE) 10/05/18 09:00 Amphetamines Screen NEGATIVE (NEGATIVE) 10/05/18 09:00 U Methamphetamines Scrn NEGATIVE (NEGATIVE) 10/05/18 09:00 U Benzodiazepines Scrn NEGATIVE (NEGATIVE) 10/05/18 09:00 U Cocaine Metab Screen NEGATIVE (NEGATIVE) 10/05/18 09:00 U Cannabinoids Screen NEGATIVE (NEGATIVE) 10/05/18 09:00 Ethyl Alcohol < 10 mg/dL (0-10) 10/05/18 08:27 - Physical Exam Vitals and I&O: Vital Signs Temp 97.5 F 10/11/18 05:38 Pulse 71 10/11/18 05:38 Resp 19 10/11/18 05:38 BP 128/65 10/11/18 05:38 Pulse Ox 96 10/11/18 05:38 Intake & Output 10/10/18 10/11/18 10/11/18 18:59 06:59 18:59 Intake Total 1320 Balance 1320 Intake: Oral 1080 Other 240 Other: # Voids 3 # Bowel Movements 1 Stool Characteristics Soft Active Medications: Current Medications Cholecalciferol (Vitamin D3) 5,000 iu PO DAILY MANDA Stop: 12/05/18 08:59 Last Admin: 10/11/18 09:06 Dose: 5,000 iu Divalproex Sodium (Depakote Dr) 500 mg PO QAM MANDA; Protocol Stop: 12/05/18 08:59 Last Admin: 10/11/18 09:07 Dose: 500 mg Docusate Sodium (Colace) 100 mg PO DAILY MANDA Stop: 12/05/18 08:59 Last Admin: 10/11/18 09:07 Dose: 100 mg Lactulose (Cephulac) 20 gm PO DAILY MANDA Stop: 12/05/18 08:59 Last Admin: 10/11/18 09:07 Dose: 20 gm Lorazepam (Ativan) 0.5 mg PO Q4HR PRN; Protocol PRN Reason: Anxiety Stop: 12/04/18 15:33 Last Admin: 10/10/18 12:43 Dose: 0.5 mg Paroxetine HCl (Paxil) 20 mg PO DAILY MANDA; Protocol Stop: 12/05/18 08:59 Last Admin: 10/11/18 09:07 Dose: 20 mg Paroxetine HCl (Paxil) 10 mg PO HS MANDA; Protocol Stop: 12/08/18 20:59 Last Admin: 10/10/18 21:12 Dose: 10 mg Risperidone (Risperdal) 0.5 mg PO BID MANDA; Protocol Stop: 12/06/18 16:59 Last Admin: 10/11/18 09:07 Dose: 0.5 mg Zolpidem Tartrate (Ambien) 5 mg PO HS PRN PRN Reason: Insomnia Stop: 12/04/18 15:37 Last Admin: 10/10/18 21:12 Dose: 5 mg General: alert, NAD HEENT: NC/AT, PERRLA, EOMI Neck: Supple, No JVD, No thyromegaly, No LAD Lungs: CTAB Cardiovascular: RRR, Normal S1, Normal S2, without murmur Abdomen: soft, non-tender, non-distended, positive bowel sound, no tender Extremities: clear Neurological: no change Internal Medicine Assmt/Plan - Assessment Assessment: ACUTE DEPRESSION HISTORY OF ESSENTIAL HTN-stable. HISTORY OF SEIZURE D/O-stable. - Plan Plan: CONT WITH CURRENT PSYCH SUPPORTIVE CARE AND MGT CONT WITH DEPAKOATE SCHEDULED AND CLONIDINE PRN
--- NOTE | 2018-10-11 19:11 | Progress Notes ---
DATE: 10/11/2018 SUBJECTIVE: The patient is currently in the hospital, mostly confused, disoriented. Really has no idea what is going on. He states he lives at home with his , not quite sure this is based in reality, ruminative, staff noting confusion but calm. Sleeping fairly well, quiet, mostly keeps to self, concerns about sexually inappropriate behaviors but seems to be generally calmer. ASSESSMENT: The patient is calm, concerns about impulsivity, poor impulse control. The patient coming from [facility]. PLAN: We will continue to monitor. The patient likely approaching his baseline. JOB# [id number]
[2018-10-12] MEDS: Lactulose 10 Gm/15 mL 30mL UDC PO SCH (08:50)
--- NOTE | 2018-10-12 21:56 | Discharge Summary ---
DATE OF DISCHARGE: 10/12/2018 HISTORY OF PRESENT ILLNESS: A 53-year-old male admitted on 10/05/2018, discharged on 10/12/2018 coming from a correction facility, aggressive, hypersexual. They could not control his behaviors, concerns for psychotic symptoms. Confused, disoriented. States he lives at home. PAST PSYCHIATRIC HISTORY: Depression, likely dementia. ALLERGIES: Noted. SOCIAL HISTORY: Noted. 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 PAST MEDICAL HISTORY: Please see full H and P. HOSPITAL COURSE: After initial assessment, the patient was started on medications to control his mood symptoms, anxiety symptoms, hypersexual symptoms. His Paxil was titrated, also on Depakote. Over the course of treatment, mood improved, affect improved, generally calmer, more cooperative. No hypersexuality. Toward the latter end of treatment, he was no longer hypersexual, calm likely approaching his baseline. Staff noting improvement. CONDITION ON DISCHARGE: Improved, allowing ADLs, calm, generally cooperative. No SI, no HI, no psychosis, confused, disengaged. Better impulse control. DISCHARGE DIAGNOSES: Mood, unspecified, dementia, dementia with behavioral disturbances. MEDICAL: Please see full H and P. PROGNOSIS: The patient follows up with outpatient mental health services and remains compliant with treatment. Prognosis will improve, otherwise guarded. [facility]# [id number]
== END 2018-10-12 17:00 | DRG 885 ==
LOC: ER 08:14 → GERO 10:00 → GERO2 10:08
PROVIDERS: ADMIT Psychiatry & Neurology Psychiatry; ATTEND Psychiatry & Neurology Psychiatry
DX: F32.3 Major depressive disorder, single episode, severe with psychotic features (principal); F03.91 Unspecified dementia, unspecified severity, with behavioral disturbance; I10 Essential (primary) hypertension; G40.909 Epilepsy, unspecified, not intractable, without status epilepticus; Z79.899 Other long term (current) drug therapy
CPT/HCPCS: 36415-UA; 80053-TC; 80061-TC; 80164-TC; 80307; 80320-TC; 80329-TC; 81003-TC; 82948-90; 83036-90; 84443-TC; 84484-TC; 85025-TC; 86592-TC; 93005; G0410